=== PATIENT | female | born 1990 ===

== ENCOUNTER 2018-04-25 23:34 | Emergency (ER) | payer MEDICAID ==
[2018-04-25 23:52] VITALS: BMI 30.4
[2018-04-26] MEDS ORDERED: Lactated Ringer's 1,000 ML IV ONE (00:04)
--- NOTE | 2018-04-26 00:19 | OBHP ---
Datetime: 04/26/2018 00:05 IP Adm Impression: Term, intrauterine Admit Comment, IP Provider: 28 y/o @ 38.3 wks GA c/o ctx pain every 10 min, reports tolerted no vb, lof, +FM. pt proerts also headache, noted to have elevated bp. pt dnies any pervious bps blur ry vision, ruq/epgiat pain. 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 PMH: denies PSH: denoies FH:X non contribotyr MEDS: PNV NKDA SHX :negative etoh/tobacc/durgs A/P @ 38.3 wks GA not in labor with elevated bp r/o gestationa htn vs preelcmapisa -preeclmapitc labs -UA -IVH -Tyenol 650mg prn headahce -cont juan manuel and efm Pelvic Type - PN: Adequate Extremities - PN: Normal Abdomen - PN: Normal Back - PN: Normal Breast - PN: Normal Lungs - PN: Normal Heart - PN: Normal Thyroid - PN: Normal Neurologic - PN: Normal HEENT - PN: Normal General - PN: Normal Presentation-Admit: Vertex FHR - Baseline A Provider: 150 Membranes, Provider: Intact Contraction Comments Provider: q 9 min Gestation - Est Wks by US: 38.3 EGA AdmitDate IP: 38.3 IP Chief Complaint: Uterine contractions; Other NICHD Variability Prov Fetus A: Moderate 6-25bpm FHR Category Provider Fetus A: Category I NICHD Decel Fetus A IP Provider: None Dilatation, Provider: 1 Effacement, Provider: 0 Station, Provider: -3 Genitourinary Exam: Normal DTRs - PN: Normal
[2018-04-26 00:46] LABS: BASO % 0.3 % (0.0-2.0); EOS # 0.1 K/uL (0.0-0.7); EOS % 0.8 % (0.0-4.0); HEMOGLOBIN 10.6 g/dL (11.0-16.0); LYMPH # 1.5 K/uL (1.0-4.3); LYMPH % 17.2 % (20.0-40.0); MEAN CELL VOLUME 88.5 fL (81.0-99.0); MEAN CORPUSCULAR HEMOGLOBIN 29.7 pg (27.0-31.0); MEAN CORPUSCULAR HGB CONC 33.5 g/dL (33.0-37.0); MEAN PLATELET VOLUME 10.1 fL (7.2-11.7); MONO # 0.6 K/uL (0.0-0.8); MONO % 6.7 % (0.0-10.0); NEUT # 6.6 K/uL (1.8-7.0); RBC 3.57 Mil/uL (3.80-5.20); RED CELL DISTRIBUTION WIDTH 14.3 % (11.5-14.5); WHITE BLOOD COUNT 8.8 K/uL (4.8-10.8)
[2018-04-26 00:54] LABS: SQUAMOUS EPITHIAL 3 /hpf (0-5); URINE BILIRUBIN NEGATIVE (NEGATIVE); URINE BLOOD NEGATIVE (NEGATIVE); URINE CLARITY Clear (Clear); URINE COLOR Yellow (YELLOW); URINE GLUCOSE (UA) NORMAL (Normal); URINE LEUKOCYTE ESTERASE NEG Leu/uL (Negative); URINE PROTEIN 1+ mg/dL (NEGATIVE)
[2018-04-26 00:59] LABS: ALB/GLOB RATIO 1.3 (1.0-2.1); ALBUMIN 3.9 g/dL (3.5-5.0); ALT/SGPT 16 U/L (9-52); AST/SGOT 21 U/L (14-36); BLOOD UREA NITROGEN 12 mg/dL (7-17); CALCIUM 9.3 mg/dl (8.6-10.4); GFR AFRICAN-AMERICAN > 60; GFR NON-AFRICAN AMERICAN > 60
[2018-04-26 01:06] LABS: PROTHROMBIN TIME 10.9 SECONDS (9.7-12.2)
[2018-04-26 06:02] VITALS: BP 128/76; PULSE 88; RESP 20; TEMP 97.8
== END 2018-04-26 01:55 | disposition home or self-care (01) ==
LOC: C.EROB 23:34
DX: O16.3 Unspecified maternal hypertension, third trimester (principal); Z3A.38 38 weeks gestation of pregnancy
CPT/HCPCS: 80053; 81001; 83615; 85025; 85384; 85610; 85730; 99283; J7120

== ENCOUNTER 2018-05-01 06:04 | Inpatient (IN) | payer MEDICAID ==
[2018-05-01 07:24] VITALS: BMI 30.3
[2018-05-01] MEDS ORDERED: Lactated Ringer's 1,000 ML IV ONE (07:26)
[2018-05-01] MEDS ORDERED: Lactated Ringer's 1,000 ML IV SCH (07:30)
[2018-05-01] MEDS ORDERED: Penicillin G 5 Million Unit Vial IVPB ONE ×2 (08:00→08:33)
[2018-05-01 08:40] LABS: BASO % 0.3 % (0.0-2.0); EOS # 0.1 K/uL (0.0-0.7); EOS % 0.5 % (0.0-4.0); HEMOGLOBIN 11.1 g/dL (11.0-16.0); LYMPH # 1.9 K/uL (1.0-4.3); LYMPH % 18.5 % (20.0-40.0); MEAN CELL VOLUME 88.7 fL (81.0-99.0); MEAN CORPUSCULAR HEMOGLOBIN 30.1 pg (27.0-31.0); MEAN CORPUSCULAR HGB CONC 33.9 g/dL (33.0-37.0); MEAN PLATELET VOLUME 10.2 fL (7.2-11.7); MONO # 0.6 K/uL (0.0-0.8); MONO % 6.1 % (0.0-10.0); NEUT # 7.5 K/uL (1.8-7.0); NEUT % 74.6 % (50.0-75.0); RBC 3.7 Mil/uL (3.80-5.20); RED CELL DISTRIBUTION WIDTH 14.6 % (11.5-14.5)
[2018-05-01 08:48] LABS: BLOOD UREA NITROGEN 10 mg/dL (7-17); GFR AFRICAN-AMERICAN > 60; GFR NON-AFRICAN AMERICAN > 60
[2018-05-01 08:49] LABS: ALB/GLOB RATIO 1.1 (1.0-2.1); ALBUMIN 3.7 g/dL (3.5-5.0); ALT/SGPT 19 U/L (9-52); AST/SGOT 19 U/L (14-36); CALCIUM 9.1 mg/dl (8.6-10.4)
--- NOTE | 2018-05-01 09:08 | OBHP ---
Datetime: 05/01/2018 08:02 IP Adm Impression: Intact Membranes IP Admit Plan: Admit to unit; Initiate labor protocol Admit Comment, IP Provider: Term in early labor Hx of Hypothyroidism and non-compliant with Endo appointments + GBS Will admit for Vaginal Delivery Pelvic Type - PN: Adequate Extremities - PN: Normal Abdomen - PN: Normal Back - PN: Normal Breast - PN: Normal Lungs - PN: Normal Heart - PN: Normal Thyroid - PN: Normal Neurologic - PN: Normal HEENT - PN: Normal General - PN: Normal Presentation-Admit: Vertex FHR - Baseline A Provider: 140-150 Membranes, Provider: Intact Contraction Comments Provider: Q 2-3 mins Gestation - Est Wks by US: 39.0 EGA AdmitDate IP: 39.1 Vital Signs Provider: Reviewed IP Chief Complaint: Uterine contractions NICHD Variability Prov Fetus A: Moderate 6-25bpm NICHD Accel Fetus A IP Provider: 15X15 FHR Category Provider Fetus A: Category I NICHD Decel Fetus A IP Provider: None Dilatation, Provider: 2-3 Effacement, Provider: 80 Station, Provider: -3 Genitourinary Exam: Normal DTRs - PN: Normal
[2018-05-01 09:11] LABS: FREE T4 0.67 ng/dL (0.78-2.19)
[2018-05-01] MEDS ORDERED: Fentanyl/Bupivacaine HCl 250 ML EPI ONE (09:20)
[2018-05-01 10:53] LABS: SQUAMOUS EPITHIAL 2 /hpf (0-5); URINE BACTERIA RARE (<OCC); URINE BILIRUBIN NEGATIVE (NEGATIVE); URINE BLOOD 1+ (NEGATIVE); URINE CLARITY Clear (Clear); URINE COLOR Yellow (YELLOW); URINE GLUCOSE (UA) NORMAL (Normal); URINE LEUKOCYTE ESTERASE TRACE Leu/uL (Negative); URINE PROTEIN NEGATIVE (NEGATIVE); URINE UROBILINOGEN NORMAL mg/dL (0.2-1.0)
--- NOTE | 2018-05-01 11:16 | OBADHP ---
Datetime: 05/01/2018 08:18 IP Adm Impression Other: Early labor +GBS Admit Comment, IP Provider: 28 yo female with an IUP at 39 weeks and in early labor and very u ncomfortable. 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 Not taking any meds. Requesting an Epidural ASHLEY Will admit and follow the admission protocol + GBS and started on PCN G as per protocol Anticipate a vaginal delivery Pelvic Type - PN: Adequate Extremities - PN: Normal Abdomen - PN: Normal Back - PN: Not Done Breast - PN: Normal Lungs - PN: Normal Heart - PN: Normal Thyroid - PN: Normal Neurologic - PN: Normal HEENT - PN: Normal General - PN: Normal Presentation-Admit: Vertex FHR - Baseline A Provider: 140 Membranes, Provider: Intact Contraction Comments Provider: Q 3-4 mins Gestation - Est Wks by US: 39.0 Vital Signs Provider: Reviewed IP Chief Complaint: Uterine contractions; Maternal discomfort NICHD Variability Prov Fetus A: Moderate 6-25bpm NICHD Accel Fetus A IP Provider: 10X10 FHR Category Provider Fetus A: Category I NICHD Decel Fetus A IP Provider: None Dilatation, Provider: 2-3 Effacement, Provider: 80 Station, Provider: -3 Genitourinary Exam: Normal DTRs - PN: Normal EGA AdmitDate IP: 39.1 IP Adm Impression: Term, intrauterine ; Intact Membranes IP Admit Plan: Admit to unit; Initiate labor protocol
--- NOTE | 2018-05-01 11:30 | OBPN ---
Datetime: 05/01/2018 11:15 IP Progress Impression: Normal progression of labor; Reactive non-stress test IP Informed Consent Obtain: Vaginal Delivery IP Progress Plan: Continue present management Membranes, Provider: Intact FHR - Baseline A Provider: 120 Gestation - Est Wks by US: 39.0 Presentation-Admit: Vertex IP Progress Note Comment: Pt seen and examined and tolerating labor better Epidural in place and working well Received first dose of PNC for GBS prophylaxis and will attempt AROM after her second dose Labs reviewed and WNL. A couple of high BPS's were noted but apparently her arm was bent at beau of taking the BP. Sequential BP's are normal Continue present management and anticipate vaginal delivery Vital Signs Provider: Reviewed; Within Normal Limits NICHD Accel Fetus A IP Provider: 10X10 FHR Category Provider Fetus A: Category I NICHD Variability Prov Fetus A: Moderate 6-25bpm Dilatation, Provider: 4 Effacement, Provider: 80 Station, Provider: -2 NICHD Decel Fetus A IP Provider: Early Datetime: 05/01/2018 08:18 Contraction Comments Provider: Q 3-4 mins
[2018-05-01] MEDS ORDERED: Oxytocin 30 UNIT 30 UNITS/500 ML BAG IV ONE ×2 (12:35)
[2018-05-01] MEDS ORDERED: Oxycodone/Acetaminophen 5/325 mg Tab PO PRN (16:24)
--- NOTE | 2018-05-01 18:24 | OBDS ---
DELIVERY PERSONNEL Delivery Doctor: dr. menon Adapted Physical Education Specialist: Sandhya Ramirez RN Anesthesiologist: dr. donna baer MATERNAL INFORMATION Delivery Anesthesia: Epidural Medications in Delivery: pitocin 20 units Estimated Blood Loss (ml): 200 (Annotations: Data stored by CPN on behalf of user) Placenta Cultured: No Maternal Complications: Other Other Maternal Complications: possible hypothyroidism RN Comments: uneventful delivery. true knot. baby delivery: 97.1-154-46 Pulse Ox 97 Provider Comments: of a viable male from FOUZIA position and over an intact perineum, s 9_9 and weight 6lbs 10 oz. Midline Laceration repaired with without complications. Patient and both tolerated the procedure well and remained in Stable and Satisfactory con dition. LABOR SUMMARY EDC: 05/07/2018 00:00 No. Babies in Womb: 1 Labor Anesthesia: Epidural LABOR INFORMATION Reason for Induction: Not Applicable Onset of Labor: 05/01/2018 05:00 Complete Dilatation: 05/01/2018 13:00 Group B Beta Strep: Positive (Annotations: 04/05/2018) Antibiotics # of Doses: 2 Antibiotics Time of Last Dose: 1200 Steroids Given: None Reason Steroids Not Administered: Not Applicable MEMBRANES Membranes Rupture Method: Artificial Rupture of Membranes: 05/01/2018 11:51 Length of Rupture (hrs): 2.17 Amniotic Fluid Color: Clear Amniotic Fluid Amount: Scant Amniotic Fluid Odor: Normal STAGES OF LABOR Stage 1 hrs: 8 Stage 1 min: 0 Stage 2 hrs: 1 Stage 2 min: 1 Stage 3 hrs: 0 Stage 3 min: 7 Total Time in Labor hrs: 9 Total Time in Labor min: 8 VAGINAL DELIVERY Episiotomy: None Laceration Extension: Second Degree Laceration Type: Perineal; Vaginal Laceration Repair: Yes Laceration Repair Note: Laceration repaired with 2-0 Vicryl and without complications. Initial Vag Sponge Count: 10 Final Vag Sponge Count: 10 Initial Vag Sharps Count: 0 Final Vag Sharps Count: 1 Sponge Count Correct: Yes Sharps Count Correct: Yes BABY A INFORMATION Infant Delivery Date/Time: 05/01/2018 14:01 Method of Delivery: Vaginal Born in Route : No : N/A Forceps: N/A Vacuum Extraction: N/A Shoulder Dystocia : No SHOULDER DYSTOCIA BABY A Delivery Date/Time: 05/01/2018 14:01 PRESENTATION/POSITION BABY A Presentation: Cephalic Cephalic Presentation: Vertex Vertex Position: Right Occipital Anterior Breech Presentation: N/A PLACENTA INFORMATION BABY A Placenta Delivery Time : 05/01/2018 14:08 Placenta Method of Delivery: Spontaneous Placenta Status: Delivered SCORES BABY A Heart Rate 1 min: >100 bpm Resp Effort 1 min: Good Cry Reflex Irritability 1 min: Cough or Sneeze or Pulls Away Muscle Tone 1 min: Active Motion Color 1 min: Body Boley, Extremities Blue SCORE 1 MIN: 9 Heart Rate 5 min: >100 bpm Resp Effort 5 min: Good Cry Reflex Irritability 5 min: Cough or Sneeze or Pulls Away Muscle Tone 5 min: Active Motion Color 5 min: Body Boley, Extremities Blue SCORE 5 MIN: 9 INFANT INFORMATION BABY A Gestational Age at Delivery: 39.1 Gestational Status: Term Infant Outcome : Liveborn Condition : Stable Sex: Male IDENTIFICATION/MEDS BABY A ID Band Number: [id number] ID Band Location: Left Leg; Left Arm Sensor Applied: Yes Sensor Number: [id number] Vitamin K Given : Aquamephyton 1 mg IM Erythromycin Given: Given Both Eyes WEIGHT/LENGTH BABY A Birthweight (gms): 3005 Infant Weight (lb): 6 Infant Weight (oz): 10 Infant Length Inches: 19.25 Length cms: 48.9 CORD INFORMATION BABY A No. Cord Vessels: 3 Nuchal Cord : N/A True Knot: 1 Cord Blood Taken: Yes Infant Suction: None ASSESSMENT BABY A Infant Complications: None Physical Findings at Delivery: Within Normal Limits Infant Respirations: Appears Normal Meter Tester/ALS Called : No Infant Care By: helen hein Transferred To: Remains with Mother
--- NOTE | 2018-05-02 13:53 | OBPPN ---
Datetime: 05/02/2018 13:43 PP Pain Prov: Within normal limits PP Nausea Prov: Denies PP Flatus Prov: Yes PP BM Prov: No PP Breasts Prov: Not Done PP Heart Prov: Normal PP Lungs Prov: Normal PP Abdomen/Uterus Prov: Normal PP Lochia Prov: Normal PP Vulva/Perineum Prov: Normal PP CVA Tenderness Prov: Not Done PP Extremities Prov: Normal PP Comments Phys Exam Prov: Fundus firm and non-tender PP Impression Prov: Normal progression PP Plan Prov: Continue present management PP Progress Note Prov: PPD #1 S/P without complications Stable and Satisfactory condition and recovery Advanced care Circumcision consent signed by mother after the procedure, risks and possible complications fully reviewed and she verbalized understanding Anticipate discharge home in AM IP PP Procedures Comments: Requested circumcision Vital Signs Provider PP: Reviewed; Within Normal Limits Datetime: 05/01/2018 11:13 PP Pain Prov comment: Epidural
[2018-05-02 14:03] LABS: BASO % 0.4 % (0.0-2.0); EOS # 0.1 K/uL (0.0-0.7); EOS % 0.9 % (0.0-4.0); HEMOGLOBIN 9.5 g/dL (11.0-16.0); LYMPH # 1.9 K/uL (1.0-4.3); LYMPH % 18.5 % (20.0-40.0); MEAN CELL VOLUME 89.5 fL (81.0-99.0); MEAN CORPUSCULAR HEMOGLOBIN 30.1 pg (27.0-31.0); MEAN CORPUSCULAR HGB CONC 33.7 g/dL (33.0-37.0); MEAN PLATELET VOLUME 9.4 fL (7.2-11.7); MONO # 0.6 K/uL (0.0-0.8); MONO % 5.8 % (0.0-10.0); NEUT # 7.7 K/uL (1.8-7.0); NEUT % 74.4 % (50.0-75.0); NRBC % 0.1 % (0.0-2.0); RBC 3.15 Mil/uL (3.80-5.20); RED CELL DISTRIBUTION WIDTH 14.9 % (11.5-14.5); WHITE BLOOD COUNT 10.3 K/uL (4.8-10.8)
[2018-05-03 08:06] VITALS: O2SAT 99
--- NOTE | 2018-05-03 10:01 | OBDCSUM ---
Datetime: 05/03/2018 08:57 Discharged to, Provider: Home Follow up at, Provider: katie Disch Instr Activity: Normal activity; May Shower Disch Instr Diet: Regular Discharge Instructions, Provider: Routine instructions given Discharge Diagnosis, Provider: Term Delivered Discharge Time: 05/03/2018 11:30 Follow up in weeks, Provider: 6 weeks Disch Referrals: None Disch Activity Restrictions: No exercising; No lifting; Minimize stair-climbing; No sexual activity; Nothing in vagina - Ronald, tampons, douche
--- NOTE | 2018-05-03 10:01 | OBPPN ---
Datetime: 05/03/2018 09:55 PP Pain Prov: Within normal limits PP Nausea Prov: Denies PP Flatus Prov: Yes PP BM Prov: No PP Breasts Prov: Normal PP Abdomen/Uterus Prov: Normal PP Extremities Prov: Normal PP Progress Prov: Normal PP Comments Phys Exam Prov: ABD: Soft, NT, Uterus firm below Umbilicus. Ext: No calf tenderness PP Impression Prov: Normal progression PP Plan Prov: Continue present management; Discharge PP Progress Note Prov: A/P: S/P doing well. DC instructions discused. F/U in the clinic in 6 wks. IP PP Procedures: None
[2018-05-03 23:22] VITALS: BP 135/82; PULSE 80; RESP 18; TEMP 98.8
== END 2018-05-03 19:20 | disposition home or self-care (01) | DRG 373 ==
LOC: C.EROB 06:04 → C.4D 07:20 → C.4M 15:50
PROVIDERS: ADMIT Obstetrics & Gynecology; ATTEND Obstetrics & Gynecology
PROC: 10E0XZZ Delivery of Products of Conception, External Approach (ICD-10-PCS; principal; 2018-05-01)
PROC: 0KQM0ZZ Repair Perineum Muscle, Open Approach (ICD-10-PCS; 2018-05-01)
PROC: 10907ZC Drainage of Amniotic Fluid, Therapeutic from Products of Conception, Via Natural or Artificial Opening (ICD-10-PCS; 2018-05-01)
DX: O99.284 Endocrine, nutritional and metabolic diseases complicating childbirth (principal); E03.9 Hypothyroidism, unspecified; O70.1 Second degree perineal laceration during delivery; O99.824 Streptococcus B carrier state complicating childbirth; O69.2XX0 Labor and delivery complicated by other cord entanglement, with compression, not applicable or unspecified; Z91.19 Patient's noncompliance with other medical treatment and regimen; Z3A.39 39 weeks gestation of pregnancy; Z37.0 Single live birth